=== PATIENT | male | born 1955 | race Caucasian/White ===

== ENCOUNTER 2018-03-06 15:54 | Emergency (ER) | payer OTHER ==
[~2018-03-06] VITALS: Ht 188 cm; Wt 99.8 kg
[~2018-03-06 15:54] MED LIST: ALBU90OI61 INH; Prednisone20 MG PO
[2018-03-06] MEDS ORDERED: Amoxicillin500 MG PO (16:25)
[2018-03-06] MEDS ORDERED: IBUP600 PO (16:25)
== END 2018-03-06 16:50 | disposition home or self-care (01) ==
LOC: ER 15:54
DX: K02.9 Dental caries, unspecified (principal); F17.200 Nicotine dependence, unspecified, uncomplicated
CPT/HCPCS: 99282

== ENCOUNTER 2018-04-26 21:01 | Emergency (ER) | payer OTHER ==
[~2018-04-26] VITALS: Ht 188 cm; Wt 99.8 kg
[~2018-04-26 21:01] MED LIST changes: +Amoxicillin500 MG PO; +IBUP600 PO
[2018-04-26] MEDS ORDERED: Cleocin HCl300 MG PO (23:23)
== END 2018-04-26 23:47 | disposition home or self-care (01) ==
LOC: ER 21:01
DX: K11.5 Sialolithiasis (principal); K04.7 Periapical abscess without sinus; F17.200 Nicotine dependence, unspecified, uncomplicated
CPT/HCPCS: 99282

== ENCOUNTER 2018-09-15 18:29 | Inpatient (IN) | payer OTHER ==
[~2018-09-15] VITALS: Ht 188 cm; Wt 110.0 kg
[~2018-09-15 18:29] MED LIST changes: +Cleocin HCl300 MG PO
[2018-09-15 20:20] LABS: Alanine Aminotransfer (ALT/SGP 69 U/L (12-78); Albumin, Blood 2.7 g/dL (3.4-5.0); Albumin/Globulin Ratio 0.6 (0.8-1.8); Alk Phos 283 U/L (50-136); Anion Gap 11 mmol/L (6-16); Aspartate Aminotrans (AST/SGOT 139 U/L (12-37); Bilirubin, Total 4.2 mg/dL (0.1-1.0); Blood Urea Nitrogen 34 mg/dL (8-24); Bun/Creatinine Ratio 40.9 (12.0-20.0); CO2, Blood 23 mmol/L (21-32); Calcium, Blood 8.4 mg/dL (8.5-10.1); Chloride, Blood 100 mmol/L (98-108); Creatinine, Blood 0.83 mg/dL (0.60-1.20); Globulin, Blood 4.7 g/dL (2.2-4.0); Glomerular Filtration Rate >60 (60-); Glucose, Blood 126 mg/dL (70-99); Potassium, Blood 3.9 mmol/L (3.5-5.5); Sodium, Blood 134 mmol/L (136-145); Total Protein, Blood 7.4 g/dL (6.4-8.2)
[2018-09-15 20:31] LABS: Hematocrit 48.2 % (37.0-53.0); Hemoglobin 16.8 g/dL (13.5-17.5); Mean Corpuscular HGB 31.2 pg (26.0-34.0); Mean Corpuscular HGB Conc 34.9 g/dL (31.5-36.5); Mean Corpuscular Volume 89 fL (80-100); Platelet Count 51 K/mm3 (150-400); RDW Coefficient Variation 14.4 % (11.7-14.2); RDW Standard Deviation 47.4 fL (35.1-46.3); Red Blood Cell Count 5.39 M/mm3 (4.30-5.90); White Blood Cell Count 15.91 K/mm3 (4.00-11.30)
[2018-09-15 20:58] LABS: BAND PERCENT MAN 20 % (0-8); BASOPHILS PERCENT MAN 0 % (0-2); EOSINOPHILS PERCENT MAN 0 % (0-6); LYMPHOCYTES ABSOLUTE MAN 0.63 K/mm3 (0.84-5.20); LYMPHOCYTES PERCENT MAN 4 % (21-46); MONOCYTES ABSOLUTE MAN 0.79 K/mm3 (0.16-1.47); MONOCYTES PERCENT MAN 5 % (4-13); NEUTROPHILS ABSOLUTE MAN 14.47 K/mm3 (1.96-9.15); SEG NEUTROPHILS PERCENT MAN 71 % (41-73); TOTAL CELLS COUNTED 100
[2018-09-15 21:59] LABS: Source, Urine Clean Catch
[2018-09-15 22:09] LABS: Blood, Urine 2+ (Neg); Glucose Qualitative, Urine Neg (Neg); Ketones, Urine 1+ (Neg); Leukocyte Esterase, Urine 1+ (Neg); Nitrite, Urine Neg (Neg); Protein, Urine 2+ (Neg); Specific Gravity, Urine 1.015 (1.003-1.022); Urobilinogen, Urine 4+ (Normal)
[2018-09-15 22:18] LABS: Bilirubin, Urine 2+ (Neg)
[2018-09-15 22:19] LABS: Appearance, Urine Hazy (Clear); Color, Urine Orange (P-Yellow)
[2018-09-15 22:23] LABS: Red Blood Cells, Urine 0-2 /hpf (0-2); Squamous Epithelial Cells Not Seen /hpf (Few); White Blood Cells, Urine 0-2 /hpf (0-5)
[2018-09-15 22:24] LABS: Bacteria Mod /hpf; Hyaline Casts 0-2 /lpf (0-2); Mucus Mod (0-Heavy); Spermatozoa Mod /hpf
[2018-09-16 03:04] LABS: Adenovirus Not Detected (NOT DETECT); Bordetella pertussis Not Detected (NOT DETECT); Chlamydophila pneumoniae Not Detected (NOT DETECT); Coronavirus 229E Not Detected (NOT DETECT); Coronavirus HKU1 Not Detected (NOT DETECT); Coronavirus NL63 Not Detected (NOT DETECT); Coronavirus OC43 Not Detected (NOT DETECT); Human Metapneumovirus Not Detected (NOT DETECT); Human Rhinovirus/Enterovirus Not Detected (NOT DETECT); Influenza A/2009-H1 Not Detected (NOT DETECT); Influenza A/H1 Not Detected (NOT DETECT); Influenza A/H3 Not Detected (NOT DETECT); Influenza B Not Detected (NOT DETECT); Mycoplasma pneumoniae Not Detected (NOT DETECT); Parainfluenza Virus 1 Not Detected (NOT DETECT); Parainfluenza Virus 2 Not Detected (NOT DETECT); Parainfluenza Virus 3 Not Detected (NOT DETECT); Parainfluenza Virus 4 Not Detected (NOT DETECT); Respiratory Syncytial Virus Not Detected (NOT DETECT)
[2018-09-16 03:43] LABS: U Amphetamine Screen DETECTED; U Barbituate Screen Not Detected; U Benzodiazapine Screen Not Detected; U Buprenorphine Screen Not Detected; U Cannabinoids Screen Not Detected; U Cocaine Screen Not Detected; U Methadone Screen Not Detected; U Methamphetamine Screen DETECTED; U Opiates Screen DETECTED; U Oxycodone Screen Not Detected; U Phencyclidine Screen Not Detected; U Propoxyphene Screen Not Detected
[2018-09-16 04:43] LABS: Influenza A Not Detected (NOT DETECT)
[2018-09-16 05:09] LABS: Hematocrit 43.1 % (37.0-53.0); Hemoglobin 14.9 g/dL (13.5-17.5); Mean Corpuscular HGB 31.2 pg (26.0-34.0); Mean Corpuscular HGB Conc 34.6 g/dL (31.5-36.5); Mean Corpuscular Volume 90 fL (80-100); Platelet Count 54 K/mm3 (150-400); RDW Coefficient Variation 14.5 % (11.7-14.2); RDW Standard Deviation 48.1 fL (35.1-46.3); Red Blood Cell Count 4.77 M/mm3 (4.30-5.90); White Blood Cell Count 14.31 K/mm3 (4.00-11.30)
--- NOTE | 2018-09-16 05:21 | NUR ---
SHIFT SUMMARY PT ARRIVED TO ROOM IN DISCOMFORT. PAIN MEDS WERE ORDERED. PT TX PER EMAR WITH GOOD RESULTS. PT RESP. PANEL RESULTS WERE NEGATIVE AND HE WAS REMOVED FROM ISOLATION STATUS. PT IS CURRENTLY SLEEPING AND BREATHING EASY. CALL LIGHT IN REACH.
[2018-09-16 05:22] LABS: Mean Platelet Volume 12.7 fL (9.1-12.4)
[2018-09-16 05:44] LABS: Alanine Aminotransfer (ALT/SGP 60 U/L (12-78); Albumin, Blood 2.1 g/dL (3.4-5.0); Albumin/Globulin Ratio 0.5 (0.8-1.8); Alk Phos 230 U/L (50-136); Anion Gap 8 mmol/L (6-16); Aspartate Aminotrans (AST/SGOT 115 U/L (12-37); Bilirubin, Total 3.6 mg/dL (0.1-1.0); Blood Urea Nitrogen 33 mg/dL (8-24); Bun/Creatinine Ratio 45.7 (12.0-20.0); CO2, Blood 25 mmol/L (21-32); Calcium, Blood 7.5 mg/dL (8.5-10.1); Chloride, Blood 103 mmol/L (98-108); Creatinine, Blood 0.72 mg/dL (0.60-1.20); Globulin, Blood 4.2 g/dL (2.2-4.0); Glomerular Filtration Rate >60 (60-); Glucose, Blood 178 mg/dL (70-99); Potassium, Blood 4.1 mmol/L (3.5-5.5); Sodium, Blood 136 mmol/L (136-145); Total Protein, Blood 6.3 g/dL (6.4-8.2)
--- NOTE | 2018-09-16 18:33 | NUR ---
SHIFT SUMMARY BARRY WAS PAINFUL THIS SHIFT, RECEIVED IV FENTANYL, WHICH HELPED. PAIN IS MOSTLY IN R HEEL (FROM BRIAR PATCH INCIDENT TWO WEEKS AGO) AND BACK AND R SHOULDER. MRI DONE, US LIVER, CXR, SHOULDER XR. POSITIVE BLOOD CULTURE RESULTS (CALLED AND INFORMED DR WETZEL). TELE DC'D. BEDBOUND, ABLE TO MOVE SLIGHTLY IN BED, BUT ALL MOVEMENT VERY PAINFUL TO HIM. USED URINAL IN BED. TOOK MED PRESCRIBED. WCTM
[2018-09-17 05:28] LABS: Hematocrit 44.1 % (37.0-53.0); Hemoglobin 15.3 g/dL (13.5-17.5); Mean Corpuscular HGB 31.4 pg (26.0-34.0); Mean Corpuscular HGB Conc 34.7 g/dL (31.5-36.5); Mean Corpuscular Volume 91 fL (80-100); Mean Platelet Volume 12.3 fL (9.1-12.4); Platelet Count 82 K/mm3 (150-400); RDW Coefficient Variation 14.7 % (11.7-14.2); RDW Standard Deviation 48.8 fL (35.1-46.3); Red Blood Cell Count 4.87 M/mm3 (4.30-5.90); White Blood Cell Count 14.59 K/mm3 (4.00-11.30)
[2018-09-17 05:55] LABS: Alanine Aminotransfer (ALT/SGP 59 U/L (12-78); Albumin, Blood 2.1 g/dL (3.4-5.0); Albumin/Globulin Ratio 0.5 (0.8-1.8); Alk Phos 232 U/L (50-136); Anion Gap 9 mmol/L (6-16); Aspartate Aminotrans (AST/SGOT 117 U/L (12-37); Bilirubin, Total 3.3 mg/dL (0.1-1.0); Blood Urea Nitrogen 33 mg/dL (8-24); Bun/Creatinine Ratio 39.7 (12.0-20.0); CO2, Blood 23 mmol/L (21-32); Calcium, Blood 7.6 mg/dL (8.5-10.1); Chloride, Blood 102 mmol/L (98-108); Creatinine, Blood 0.83 mg/dL (0.60-1.20); Globulin, Blood 4.6 g/dL (2.2-4.0); Glomerular Filtration Rate >60 (60-); Glucose, Blood 109 mg/dL (70-99); Potassium, Blood 4.1 mmol/L (3.5-5.5); Sodium, Blood 134 mmol/L (136-145); Total Protein, Blood 6.7 g/dL (6.4-8.2)
[2018-09-17 06:05] LABS: BAND PERCENT MAN 14 % (0-8); BASOPHILS PERCENT MAN 0 % (0-2); EOSINOPHILS PERCENT MAN 0 % (0-6); LYMPHOCYTES ABSOLUTE MAN 0.72 K/mm3 (0.84-5.20); LYMPHOCYTES PERCENT MAN 5 % (21-46); MONOCYTES ABSOLUTE MAN 2.33 K/mm3 (0.16-1.47); MONOCYTES PERCENT MAN 16 % (4-13); NEUTROPHILS ABSOLUTE MAN 11.52 K/mm3 (1.96-9.15); SEG NEUTROPHILS PERCENT MAN 65 % (41-73); TOTAL CELLS COUNTED 100
--- NOTE | 2018-09-17 06:42 | NUR ---
SHIFT SUMMARY PT SLEPT SOUNDLY T/O NIGHT. AOX4. VSS. PT REPORTS 7/10 LOWER BACK/L. SIDE PAIN, MEDICATED 2X W/10MG OXYCODONE PER ORDERS. PT REPORTED MILD NAUSEA THIS AM & WAS MEDICATED 1X W/ZOFRAN PER ORDERS. PT REPORTED SOB W/EXERTION/MOVEMENT IN BED EARLIER IN SHIFT, SPO2 @90-93% ON RA, DENIES SOB THIS AM. PT VERY DIAPHORETIC T/O NIGHT W/MILD FEVER RANGING 99.6-100.8 NOTIFIED HOSPITALIST KAILA, NO NEW ORDERS @THIS TIME. PLACED ICE PACK ON BACK OF NECK & PT REPORTS IT IS HELPING, PT NOT DIAPHORETIC THIS AM. PER DAY SHIFT RN PT REPORTED DRINKING 3-4 ALCOHOLIC BEVERAGES A DAY, NOTIFIED CHARGE NURSE & STARTED ASSESSING CIWA PER PROTOCAL. CIWA SCORE HAS BEEN 8 T/O NIGHT, MEDICATED 1X W/ATIVAN PER ORDERS. CALL LIGHT IS IN REACH & BED IS IN LOWEST POSITION.
--- NOTE | 2018-09-17 17:00 | NUR ---
HE HAS SLEPT THROUGHOUT THE DAY. HE DRINKS WELL BUT HAS EATEN LITTLE. OXYCODONE 10 MG GIVEN X1. DENIES NAUSEA, SOB OR DIZZINESS. HE HAS A LOT OF PAIN IN HIS R SHOULDER AND IN HIS BACK. HE IS STIFF AND DOES NOT MOVE HIMSELF. LARGE U.O. SOME MEASURED, SOME INCONTINENT. HE REFUSED HIS ABD MRI EVEN AFTER DISCUSSIONS WITH ME AND THEN THE DOCTOR. HE SAYS HE'LL LET US KNOW IF HE CHANGES HIS MIND. CIWA 7. LOW GRADE FEVER TODAY WITH SOME DIAPHORESIS. HEEL PROTECTORS AND SCD'S INITIATED TODAY. HE HAS SOME WHOLE BODY EDEMA. VANCO CONTINUES. ZOSYN STARTED. WILL CONTINUE TO ENCOURAGE POSITION CHANGES TO AVOID SKIN BREAKDOWN. HE WILL NOT MOVE ON HIS OWN.
--- NOTE | 2018-09-17 23:04 | NUR ---
2204 PT LYING IN BED, REPORT SOB THAT INCREASES WITH EXERTION. PT IS ON RA AT 88%, WILL ADD O2. REPORTS BACK PAIN, GAVE ROXICODONE AND FLEXERIL, WILL EVAL FOR EFFECT. NO OTHER APPARENT SIGNS OF DISTRESS. CALL LIGHT IS IN REACH.
--- NOTE | 2018-09-18 01:03 | NUR ---
PT LYING IN BED, EYES CLOSED, APPEARS TO BE RESTING. BREATHING IS EVEN, UNLABORED. NO APPARENT SIGNS OF DISTRESS. CALL LIGHT IS IN REACH. PLACED 1L O2 NC ON PATIENT, WILL EVAL FOR EFFECT.
--- NOTE | 2018-09-18 02:04 | NUR ---
PT'S O2 IS NOW 96% ON 1L NC O2. PT LYING IN BED, EYES CLOSED, APPEARS TO BE RESTING. BREATHING IS EVEN, UNLABORED. NO APPARENT SIGNS OF DISTRESS. CALLL LIGHT IS IN REACH.
--- NOTE | 2018-09-18 02:54 | NUR ---
PT IS AAO X 4 BUT DROWSY. ON 1L O2NC. SCD'S. PT REPORTS BACK PAIN, GOT ROXICODONE AND FLEXERIL AT HS. ABD IS DISTENDED AND SLIGHTLY FIRM. CIWA 0-2. LAST BM 09/15, GAVE PT DOCUSATE. PT REPORST A LITTLE SOB THAT INCREASES WITH EXERTION, O2 SAT IS 96%.
--- NOTE | 2018-09-18 05:14 | NUR ---
0400 PT LYING IN BED, EYES CLOSED, WAKES EASILY TO VERBAL STIMULI. NO APPARENT SIGNS OF DISTRESS. CALL LIGHT IS IN REACH.
--- NOTE | 2018-09-18 05:15 | NUR ---
PT LYING IN BED, EYES CLOSED, APPEARS TO BE RESTING. BREATHING IS EVEN, UNLABORED. NO APPARENT SIGNS OF DISTRESS. CALL LIGHT IS IN REACH. NO OTHER CHANGES THIS SHIFT.
[2018-09-18 11:24] LABS: Vancomycin, Trough 10.2 ug/mL (5.0-10.0)
--- NOTE | 2018-09-18 11:33 | NUR ---
HE HAS BEEN MORE ALERT TODAY. LOW GRADE FEVER RESOLVED AFTER BREAKFAST. HE HAS BEEN DIAPHORETIC. O2 2L. MOVES HIS ARMS AND HEAD BUT NOT HIS BODY AND LEGS. TURNED BY US THIS AM. HE FED HIMSELF BETTER THIS MORNING. HE HAS POOR ROM IN HIS R ARM D/T PAIN.
--- NOTE | 2018-09-18 17:12 | NUR ---
SHIFT SUMMARY 2 ANTIBIOTICS DC'D TODAY AND MEFOXIN STARTED. HE HAS BEEN WARM AND CLAMMY MOST OF THE DAY. CIWA SCORES 5 AND LATER, 2. PAIN MEDICINES AND BOWEL CARE GIVEN THIS AFTERNOON. BEDBATH DONE. HE HAS BEEN TURNED. HE IS PAINFUL WITH ANY MOVEMENT. NOW HE HAS SHARP PAIN IN HIS RIGHT RIBS IN ADDITION TO HIS BACK AND HIS RIGHT SHOULDER. HE ALSO RECEIVED A NEB TX THIS AFTERNOON FOR WHEEZES AND SOB. HE SATS 91% ON 2L. RIGHT NOW HE HAS A FEVER OF 101 AND SAT 92%. PULSE AND BP STABLE. WILL CALL MD ABOUT THE FEVER. NO MED ORDERED FOR IT. ABD IS DISTENDED. HE CONTINUES TO REFUSE THE MRI OF HIS ABD. MOR AWAKE THAN YESTERDAY AND ABLE TO FEED HIMSELF. HE ATE 60% AND 40% AT MEALS SO FAR TODAY.
--- NOTE | 2018-09-18 18:34 | NUR ---
TYLENOL WAS GIVEN FOR FEVER. ZOSYN HAS BEEN RESUMED. SPOKE WITH AN INFECTIOUS DISEASE DOCTOR [facility].
--- NOTE | 2018-09-18 20:09 | NUR ---
PT WAS VERY DIAPHORETIC UPON ASSESSMENT BUT LIKELY BROKE FEVER WHICH HAS NOW RESOLVED, T=98.5 AT THIS TIME. GOWN AND LINEN CHANGED D/T BECOMING SATURATED. HE ATTEMPTED TO GET OOB BY SELF AND WAS FOUND SITTING AT EOB AT SHIFT CHANGE. DAY RN STATED THIS WAS THE MOST MOBILITY HE'D HAD SINCE ADMISSION. HE WAS INSTRUCTED ON FALL PRECAUTIONS D/T WEAKNESS AND WAS ASSISTED BACK TO BED. PLAN TO HAVE PT EVALUATE FOR RECOMMENDATIONS. HE BECOMES SOB W/EXERTION BUT RECOVERS AT REST. PT ON 2L NC W/SPO2 92%. WILL MONITOR CLOSELY FOR CHANGES. PT DENIED NEEDS AT THAT TIME.
--- NOTE | 2018-09-19 05:55 | NUR ---
SUMMARY: A/OX3 AND SPECIFIES NEEDS. STRENGTH IMPROVING BECAUSE PT WAS ABLE TO GET HIMSELF TO EOB INDEPENDENTLY AT START OF SHIFT. HE WAS ASSISTED BACK TO BED UNTIL PT EVALUATION TO DETERMINE SAFE T/F AND MOBILITY. PT DENIED NEEDS AT THAT TIME. HE REQ'S ASSISTANCE W/URINAL AND CALLS APPROPRIATELY. PT ASSISTED W/REPOSITIONING D/T EXTENSIVE SPINAL ISSUES WHICH LIMIT ROM. PT MEDICATED W/ FENTANYL PRN FOR BACK PAIN. NS INFUSES TKVO. ABDO FIRM/DISTENDED W/POSSIBLE LIVER MASS BUT PT REFUSING MRI. HE REMAINS ON 2L O2 W/WHEEZES AND OCCASIONAL FINE CRACKLES HEARD. CIWAS STABLE AT 2. PT WAS FEBRILE DURING DAY SHIFT AND RECIEVED TYLENOL FOR GOOD EFFECT. HE'S CONT'D DIAPHORETIC AT TIMES BUT HAS REMAINED AFEBRILE. NO ACUTE CHANGES, VSS/AFEBRILE. WILL MONITOR AND REPORT TO DAY RN.
--- NOTE | 2018-09-19 10:26 | NUR ---
Echocardiogram completed.
[2018-09-19 13:02] LABS: BASOPHILS ABSOLUTE AUTO 0.04 K/mm3 (0.00-0.23); BASOPHILS PERCENT AUTO 0 % (0-2); EOSINOPHILS ABSOLUTE AUTO 0.03 K/mm3 (0.00-0.68); EOSINOPHILS PERCENT AUTO 0 % (0-6); Hematocrit 42.4 % (37.0-53.0); Hemoglobin 14.2 g/dL (13.5-17.5); IMMATURE GRAN ABSOLUTE AUTO 0.42 K/mm3 (0.00-0.10); IMMATURE GRAN PERCENT AUTO 3 % (0-1); LYMPHOCYTES PERCENT AUTO 5 % (21-46); MONOCYTES ABSOLUTE AUTO 0.94 K/mm3 (0.16-1.47); MONOCYTES PERCENT AUTO 6 % (4-13); Mean Corpuscular HGB 30.8 pg (26.0-34.0); Mean Corpuscular HGB Conc 33.5 g/dL (31.5-36.5); Mean Corpuscular Volume 92 fL (80-100); Mean Platelet Volume 10.6 fL (9.1-12.4); NEUTROPHILS ABSOLUTE AUTO 12.52 K/mm3 (1.96-9.15); NEUTROPHILS PERCENT AUTO 85 % (41-73); Platelet Count 140 K/mm3 (150-400); RDW Coefficient Variation 15.1 % (11.7-14.2); RDW Standard Deviation 50.4 fL (35.1-46.3); Red Blood Cell Count 4.61 M/mm3 (4.30-5.90); White Blood Cell Count 14.65 K/mm3 (4.00-11.30)
[2018-09-19 13:18] LABS: Creatinine, Blood 0.64 mg/dL (0.60-1.20)
[2018-09-19 13:23] LABS: Alanine Aminotransfer (ALT/SGP 58 U/L (12-78); Albumin, Blood 1.6 g/dL (3.4-5.0); Albumin/Globulin Ratio 0.3 (0.8-1.8); Alk Phos 267 U/L (50-136); Anion Gap 8 mmol/L (6-16); Aspartate Aminotrans (AST/SGOT 113 U/L (12-37); Bilirubin, Total 6.7 mg/dL (0.1-1.0); Blood Urea Nitrogen 20 mg/dL (8-24); Bun/Creatinine Ratio 32.5 (12.0-20.0); CO2, Blood 24 mmol/L (21-32); CPK Creatine Kinase 108 U/L (39-308); Calcium, Blood 7.4 mg/dL (8.5-10.1); Chloride, Blood 97 mmol/L (98-108); Creatinine, Blood 0.62 mg/dL (0.60-1.20); Globulin, Blood 5.1 g/dL (2.2-4.0); Glomerular Filtration Rate >60 (60-); Glucose, Blood 188 mg/dL (70-99); Sodium, Blood 129 mmol/L (136-145); Total Protein, Blood 6.7 g/dL (6.4-8.2)
--- NOTE | 2018-09-19 18:20 | NUR ---
SHIFT SUMMARY PT A&O TO SELF AND PLACE. ANXIOUS AT TIME, BUT COOPERATIVE WITH CARE. PT RESTING IN BED DURING SHIFT. PT ASSIST WITH REPORITIONING. PT SOB WITH EXERTION AND AT TIMES AT REST, BREATHING TREATMENTS x2 DURING SHIFT, LS EXP WHE T/O, >90% ON 2L O2 VIA NC. PT REPORTS PAIN "ALL OVER" BUT PRIMARILY IN LOWER BACK AND RIGHT SHOULDER/ARM, MEDICATED x2 WITH OXYCODONE WITH POSITIVE RESULTS. PT DENIES N/V DURING SHIFT. PT RECEIVING IV ANTIBIOTICS. VSS. NO OTHER ACUTE CHANGES NOTED DURING SHIFT. WILL CONTINUE TO MONITOR UNTIL REPORT GIVEN TO ONCOMING RN.
[2018-09-20 05:55] LABS: Anion Gap 6 mmol/L (6-16); Blood Urea Nitrogen 19 mg/dL (8-24); Bun/Creatinine Ratio 31.2 (12.0-20.0); CO2, Blood 26 mmol/L (21-32); Calcium, Blood 7.5 mg/dL (8.5-10.1); Chloride, Blood 99 mmol/L (98-108); Creatinine, Blood 0.61 mg/dL (0.60-1.20); Glomerular Filtration Rate >60 (60-); Glucose, Blood 104 mg/dL (70-99); Potassium, Blood 4.5 mmol/L (3.5-5.5); Sodium, Blood 131 mmol/L (136-145)
--- NOTE | 2018-09-20 06:02 | NUR ---
SUMMARY: A/O BUT CONFUSED TO TIME/DATE. HE CONT'S TO BE DIAPHORETIC W/LINEN AND GOWN CHANGES PRN. PT USES URINAL INDEPENDENTLY IN BED AND ATTENDS CHANGED PRN FOR DRIBBLE. HE CALLS APPROPRIATELY AT TIMES BUT MARIPOSA BRITTON ATTENDED TO BECAUSE HE OFTEN BECOMES SLUMPED DOWN IN BED AND DOESN'T CALL FOR ASSIST. REPOSITIONING PROVIDED OFTEN. PT MEDICATED W/FENTANYL 50 MCG IV X1 AND ROXICODONE 2 TABS X1 FOR TOLERABLE CONTROL OF CHRONIC BACK PAIN AND ACUTE RIB PAIN. SOB BOTH AT REST AND W/EXERTION PERSIST AND IS OCCASIONALLY ANXIETY INDUCED. EXP WHEEZES HEARD AND RT PROVIDED BX TX'S PER EMAR. HE REMAINS ON 2L O2 VIA NC SPO2>90'S. 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 CIWAS VARIABLE BTWN 6-7 D/T TREMOR, ANXIETY AND SWEATS SO ATIVAN 1MG IV WAS GIVEN FOR CALMING EFFECT. PT WAS ABLE TO SLEEP SOME WHICH HE WAS HAVING DIFFICULTY DOING PRIOR. ABDO CONT'S FIRM/DISTENDED W/POSS LIVER MASS, HE'S DENIED N/V. NO ACUTE CHANGES, VSS/AFEBRILE. WILL REPORT TO DAY RN.
--- NOTE | 2018-09-20 09:39 | NUR ---
PT C/O RIGHT SIDED "SHARP" NON REPRODUCIBLE CONSTANT CHESTPAIN; SKIN MOIST; DENIES INCREASED SOB OR NAUSEA; JUST COMPLETED OT EVALUATION WHEN PAIN BEGAN. REPORTED TO DR. DOAN; EKG ORDERED. [facility] NOTIFIED VIA [employer].
--- NOTE | 2018-09-20 18:16 | NUR ---
SHIFT SUMMARY OX3; CLAMMY SKIN THROUGHOUT SHIFT; EKG PERFORMED TODAY FOR RIGHT SIDED CP NOW RESOLVED; ABLE TO SIT ON EDGE OF BED - WEAKNESS NOTED. CHRONIC RIGHT SHOULDER AND LOWER BACK PAIN. LS WITH AUDIBLE WHEEZING AT TIMES; SIWA >6; 2L PER NC. BEDREST. DISTENDED ABDOMEN R/T LIVER DISEASE. HX OF METH, ETOH. COOPERATIVE WITH CARE.
--- NOTE | 2018-09-21 04:04 | NUR ---
SHIFT SUMMARY: PT RESTED WELL. CONTINUES TO BE ON 3L VIA NC AND SOB. MEDICATED X 2 FOR RIB AND LOWER BACK PAIN. EPIRATORY WHEEZES T/O. ABDOMEN CONTINUES TO BE DISTENDED AND FIRM. NO ACUTE CHANGES. PT HAS BEEN COOPERATIVE WITH CARE. WILL CONTINUE TO MONITOR AND PROVIDE CARE UNTIL SHIFT REPORT.
[2018-09-21 05:08] LABS: BASOPHILS ABSOLUTE AUTO 0.07 K/mm3 (0.00-0.23); BASOPHILS PERCENT AUTO 0 % (0-2); EOSINOPHILS ABSOLUTE AUTO 0.09 K/mm3 (0.00-0.68); EOSINOPHILS PERCENT AUTO 1 % (0-6); Hematocrit 38.8 % (37.0-53.0); IMMATURE GRAN ABSOLUTE AUTO 0.51 K/mm3 (0.00-0.10); IMMATURE GRAN PERCENT AUTO 3 % (0-1); LYMPHOCYTES ABSOLUTE AUTO 0.81 K/mm3 (0.84-5.20); LYMPHOCYTES PERCENT AUTO 5 % (21-46); MONOCYTES ABSOLUTE AUTO 1.17 K/mm3 (0.16-1.47); MONOCYTES PERCENT AUTO 7 % (4-13); Mean Corpuscular HGB 31.2 pg (26.0-34.0); Mean Corpuscular HGB Conc 33.5 g/dL (31.5-36.5); Mean Corpuscular Volume 93 fL (80-100); Mean Platelet Volume 9.8 fL (9.1-12.4); NEUTROPHILS ABSOLUTE AUTO 13.42 K/mm3 (1.96-9.15); NEUTROPHILS PERCENT AUTO 84 % (41-73); Platelet Count 182 K/mm3 (150-400); RDW Coefficient Variation 15.2 % (11.7-14.2); RDW Standard Deviation 50.7 fL (35.1-46.3); Red Blood Cell Count 4.17 M/mm3 (4.30-5.90); White Blood Cell Count 16.07 K/mm3 (4.00-11.30)
--- NOTE | 2018-09-21 15:00 | NUR ---
SPOKE WITH DR. DOAN IN REGARDS TO DR. SEBASTIAN'S REQUEST THAT ONLY ATTENDING PHYSICIANS CAN PLACE NEW ID CONSULTS AND WILL HAVE TO SPEAK DIRECTLY TO DR. SEBASTIAN ON PER HIS VOICEMAIL RECORDING.
--- NOTE | 2018-09-21 17:05 | NUR ---
SHIFT SUMMARY UP IN CHAIR FOR SEVERAL HOURS TODAY; SBAX1; APPEARS LESS WEAK THAN YESTERDAY; CONVERSATIONAL AND JOKING WITH STAFF; EXP WHEEZES NOTED. EATING AND DRINKING WELL. VOIDING DARK FRANKY URINE PER URINAL. MEDICATED FOR CHRONIC LOWER BACK AND RIGHT SHOULDER PAIN PER MD ORDER. PT STATED RELIEF.
--- NOTE | 2018-09-22 04:47 | NUR ---
Rn summary: Patient is alert and oriented. Pt has been pleasant and cooperative. Pt states he has not had a BM for several days. Pt given a suppository. He had a large firm stool. Pt requested a fleets states he feels like he still needs to go. Pt given a fleets had another med stool. Pt is able to transfer with minimal assist to [facility]. Pt is sweaty. He scores a 6 on the CIWA scale mostly due to his diaphoresis. Pt denies pain. He has actually rested well this shift. Pt has trouble keeping his O2 in his nose, takes it off when he sleeps. Pt was found to have O2 sats at 87% on room air, 90% on 3 liters. Breath sounds with Expiratory wheezes throughout, fine crackles L base. Pt medicted for pain x1 with good relief. Pt using urinal, urine is dk manuel in color. Continue to monitor closely, bed alarm on for safety.
--- NOTE | 2018-09-22 09:29 | NUR ---
AM ASSESSMENT PT IS A/O X3. STATE CONTINUING SOB @ REST. LUNGS COARSE W EXP WHEEZE, RT IN TO PROVIDE NEB. O2 @ 3L 97%. ABD IS ROUND/DISTENDED/FIRM. DR DOAN IN TO ASSESS, ORDER ABD US TO DETERMINE IF ASCITES. STATE HE WILL CALL DR SEBASTIAN FOR ID CONSULT. CIWA 3 THIS AM D/T MILD ANXIETY & DIAPHOESIS. BLE EDEMA NOTED. PT IS PLEASANT/COOPERATIVE. SITTING UP IN BED FOR BF.
--- NOTE | 2018-09-22 14:31 | NUR ---
RECEIVED REPORT FROM LISSY ARMIJO
--- NOTE | 2018-09-22 16:15 | NUR ---
TRANSPORTED TO CT VIA W/C AND IN NO ACUTE DISTRESS.
--- NOTE | 2018-09-22 18:49 | NUR ---
SHIFT SUMMARY OX3; STANDBY ASSIST X1-2. CHRONIC LOWER BACK AND RIGHT ARM PAIN; HOMELESS. ULTRASOUND AND CT COMPLETED THIS SHIFT. DR. SEBASTIAN TALKED WITH PT THIS P.M.
[2018-09-23 02:12] LABS: HBSAG SCREEN Negative (Negative); HEP A AB, IGM Negative (Negative); HEP B CORE AB, IGM Negative (Negative); HEP C VIRUS AB >11.0 (0.0-0.9)
[2018-09-23 04:48] LABS: BASOPHILS ABSOLUTE AUTO 0.06 K/mm3 (0.00-0.23); BASOPHILS PERCENT AUTO 1 % (0-2); EOSINOPHILS PERCENT AUTO 1 % (0-6); Hematocrit 38.4 % (37.0-53.0); Hemoglobin 12.7 g/dL (13.5-17.5); IMMATURE GRAN ABSOLUTE AUTO 0.46 K/mm3 (0.00-0.10); IMMATURE GRAN PERCENT AUTO 4 % (0-1); LYMPHOCYTES ABSOLUTE AUTO 0.99 K/mm3 (0.84-5.20); LYMPHOCYTES PERCENT AUTO 9 % (21-46); MONOCYTES ABSOLUTE AUTO 1.16 K/mm3 (0.16-1.47); MONOCYTES PERCENT AUTO 10 % (4-13); Mean Corpuscular HGB Conc 33.1 g/dL (31.5-36.5); Mean Corpuscular Volume 94 fL (80-100); Mean Platelet Volume 9.3 fL (9.1-12.4); NEUTROPHILS ABSOLUTE AUTO 8.49 K/mm3 (1.96-9.15); NEUTROPHILS PERCENT AUTO 75 % (41-73); Platelet Count 270 K/mm3 (150-400); RDW Coefficient Variation 15.9 % (11.7-14.2); RDW Standard Deviation 52.2 fL (35.1-46.3); White Blood Cell Count 11.26 K/mm3 (4.00-11.30)
[2018-09-23 05:34] LABS: Anion Gap 4 mmol/L (6-16); Blood Urea Nitrogen 15 mg/dL (8-24); Bun/Creatinine Ratio 24.6 (12.0-20.0); CO2, Blood 32 mmol/L (21-32); Calcium, Blood 7.4 mg/dL (8.5-10.1); Chloride, Blood 96 mmol/L (98-108); Creatinine, Blood 0.61 mg/dL (0.60-1.20); Glomerular Filtration Rate >60 (60-); Glucose, Blood 104 mg/dL (70-99); Sodium, Blood 132 mmol/L (136-145)
--- NOTE | 2018-09-23 06:51 | NUR ---
Rn summary: Pt is alert and knows his birthday the month and where he is but he is nonsensicle and just says off the wall things. Pt has been better at keeping his O2 on at 3 liters. Pt gets very diaphoretic and agitated. He says yes it could be due to his drug use. Pt given oxy 10mg and a small fan to help with feeling "hot". Pt did rest well after med given and has had no further restlessness. He has rested well since 0130. Pt has tight fine exp wheezes scattered through right lung. Abdomen is distended and firm. Bowel tones hypoactive. MOM and colace given with no results. ( CT states he has a lot of stool in bowel). Pt continues with sl jaundiced skin tone and brownish legs. Pt urine remains dk manuel in color. Using the urinal at bedside. Call light in reach and pt uses appropriately. Bed alarm for safety.
--- NOTE | 2018-09-23 13:10 | NUR ---
IS HERE TO CONSULT WITH HIM.
[2018-09-23 16:08] LABS: FINAL INTERPRETATION Negative (.); HIV 1 AB Negative (Negative); HIV 2 AB Negative (Negative)
--- NOTE | 2018-09-23 19:22 | NUR ---
SHIFT SUMMARY NO HIGH FEVER TODAY. NO DIAPHORESIS. MORE ALERT THAN 5 DAYS AGO. TOOK OXYCODONE X1 TODAY FOR LOW BACK PAIN. CONSULTED WITH HIM TODAY. SPOKE WITH TODAY. POSSIBLE CHAPARRITA ON WEDNESDAY. LABS OK.O2 3L. NO C/O SOB. ABD REMAINS DISTENDED. HE HAD AN X-LG BM TODAY.
--- NOTE | 2018-09-24 04:49 | NUR ---
SHIFT SUMMARY A/O, ABLE TO MAKE NEEDS KNOWN. COOPERATIVE WITH CARE. ANSWERS QUESTIONS APPROPRIATELY. NOTED NON-SENSICAL LANGUAGE AT TIMES. C/O PAIN/DISCOMFORT; STATES BECOMES PAINFUL AT NIGHT AND HAS PAINS IN BLE. MEDICATED PER EMAR. APPEARED TO REST MOST OF SHIFT. VSS/AFEBRILE. NO ACUTE CHANGES NOTED OVERNIGHT. BED IN LOWEST POSITION. CALL LIGHT AND BELONGINGS WITHIN REACH. WCTM. REPORT TO ONCOMING RN.
--- NOTE | 2018-09-25 04:21 | NUR ---
SHIFT SUMMARY REMAINS A/O. COOPERATIVE WITH CARE. NO ACUTE CHANGES NOTED OVERNIGHT. ANSWERS QUESTIONS APPROPRIATELY. C/O PAIN/DISCOMFORT TO LOW BACK; MEDICATED PER EMAR. APPEARED TO REST MOST OF SHIFT. IV ABX ADMINISTERED WITHOUT COMPLICATION. SCD'S IN PLACE. BED IN LOWEST POSITION. ALARM ON. CALL LIGHT AND BELONGINGS WITHIN REACH. WCTM. REPORT TO ONCOMING RN.
--- NOTE | 2018-09-25 16:57 | NUR ---
SHIFT SUMMARY. A&OX4, 1 ASSIST TO BATHROOM FOR BMS, USES URINAL IN BED. PT SLEPT MOST OF THE DAY. REPORTED CHRONIC BACK PAIN THIS AM, MANAGED WELL WITH PRN OXYCODONE. NO N/V, SOB. CONTINUES WITH 2L O2 NC, LUNGS WITH EXPIRATORY WHEEZES THROUGHOUT. ABD MODERATELY DISTENDED, FIRM, NONTENDER, PT STATES NOT NORMAL FOR HIM. PT REPORTS XL BM YESTERDAY. NO NEW CHANGES OR CONCERNS.
--- NOTE | 2018-09-26 05:20 | NUR ---
SHIFT SUMMARY A/O, ABLE TO MAKE NEEDS KNOWN. COOPERATIVE WITH CARE. C/O PAIN TO LOWER BACK AND BLE; MEDICATED PER EMAR. VSS/AFEBRILE. UP WITH 1 ASSIST AND FWW TO BATHROOM; STEADY GAIT. NO ACUTE CHANGES NOTED OVERNIGHT. REMAINS ON 3L VIA [facility] [employer]. BED IN LOWEST POSITION. ALARM ON. CALL LIGHT AND BELONINGS WITHIN REACH. REPORT TO ONCOMING RN.
--- NOTE | 2018-09-26 15:45 | NUR ---
summary PT IS A/O X4, PLEASANT AFFECT, 1 ASSIST W FWW TO BR/CHAIR, HOWEVER WEAK/FATIGUED. STATE LOW BACK PAIN, PRN OXYCODONE 10 MG FOR RELIEF TODAY. HE PARTICIPATE WITH PT/OT, AMBULATE IN ROOM HOWEVER DECLINES TO STAY UP IN CHAIR D/T BACK PAIN. HE GETS SOMEWHAT SOB W EXERTION HOWEVER THIS AFTERNOON HE TOOK O2 OFF, BIOX 97%, ON RA @ THIS TIME. ABD CONTINUES FIRM/DISTENDED. HX CIRRHOSIS, US NEGATIVE FOR ASCITES. DX PSOAS ABCESS, IV ANTIBX CONTINUE, NO FEVER TODAY, VSS.
--- NOTE | 2018-09-27 04:42 | NUR ---
SHIFT SUMMARY PT ADMITTED FOR FEVER. FULL CODE. REGULAR DIET. XR CT MR INJASPIR-MAJOR JOINT, PSOAS ABSCESS, RIGHT, CT GUIDED ASPIRATION OF PSOAS MAJOR ABCESS-CX WITH GRAM STAIN. 20 G IV TO R FA. 1 PERSON ASSIST WITH FWW FOR AMBULATION. TITRATED OFF O2 YESTERDAY, SATS GREATER THEN 90% ON RA. THE PT PRESENTED TO THE ED WITH C/O BODY ACHES, LOW BACK PAIN, AND LEFT LEG PAIN. THE PT ALSO REPORTED R SHOULDER AND ARM PAIN OF UNKNOWN CAUSE. ABD US SHOWED LIKELY CIRRHOSIS, PT REPORTS ALCOHOL HISTORY. THE PT IS NOTED TO BE SEPTIC, LIKELY SECONDARY TO PNEUMONIA/BACTEREMIA OR SECONDARY TO IV DRUG ABUSE. MRI SHOWED SIGNIFICANT DEGENERATIVE DISC DISEASE. 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 INFECTIOUS DISEASE RECOMMENDED CHAPARRITA BUT CARDIOLOGY WANTED TO HOLD OFF UNTIL THE ABCESS IS DRAINED. UPON SURGICAL CONSULT IT IS NOTED THAT THE ABCESS CANOT BE DRAINED. THE PT IS PLEASENT, COOPERATIVE, ALERT, ORIENTED, AND 1 PERSON ASSIST WITH FWW WITH TRANSFER. THE PT LAYED IN BED, WOKE EASILY FOR CARE AND WAS PROVIDED MULTIPLE SNACKS THIS SHIFT. THE PT HAS APPEARED TO SLEEP COMFORTABLY MOST OF THE NIGHT WITH NO APPARENT SIGNS OF ACUTE DISTRESS. ABLE TO MAKE NEEDS KNOWN AND CALL LIGHT IN REACH.
[2018-09-27 04:50] LABS: International Normalized Ratio 1.61; Prothrombin Time Results 16.1 Sec (9.7-11.5)
--- NOTE | 2018-09-27 09:52 | NUR ---
PATIENT WAS OFFERED A SHOWER MULTIPLE TIMES THIS MORNINF AND PATIENT DECLINED STATING HE IS OK FOR TODAY.
--- NOTE | 2018-09-27 13:44 | NUR ---
Pt gave verbal consent for me to treat him on 09-28-2018
--- NOTE | 2018-09-27 16:20 | NUR ---
SUMMARY PT IS A/O X4, AMBULATES 1 ASSIST WITH FWW HOWEVER WEAKLY & WITH BACK PAIN. STATE FEELS BEST WHEN LYING DOWN WITH HOB APPROX 30 DEGREES. STATE CONTINUING ABDOMINAL DISTENTION, STATES MAKES BREATHING DIFFICULT HOWEVER NOT CAUSING HIM PAIN. DR WETZEL ORDERED PSOAS ABCESS US GUIDED ASPIRATION TODAY, THEY WERE ABLE TO OBTAIN SAMPLE HOWEVER UNABLE TO DRAIN. DR JIN SURGERY THAT PT NEEDS UNAVAILABLE @ [facility], WILL ATTEMPT TO TRANSFER PT TO [facility]. CLINICAL LABORATORY MANAGER AWARE. AWAITING CALL BACK FROM [facility] @ THIS TIME. PT INFORMED & AWARE OF POSSIBLE TRANSFER. VSS.
--- NOTE | 2018-09-27 22:45 | NUR ---
TRANSFER CALLED REPORT TO JANESSA KHAN AT 2140 AT [facility]. TRANSPORT ARRIVED AND REPORT GIVEN. PT DISCHARGED FOR TRANSFER AT 2240. PT VERBALIZED UNDERSTANDING OF TRANSFER AND REASON FOR TRANSFER. PT WAS IN GOOD SPIRITS AT TRANSFER AND APPEARED STABLE. NO APPARENT SIGNS OF ACUTE DISTRESS.
== END 2018-09-27 22:43 | disposition short-term general hospital (02) | DRG 871 ==
LOC: ER 18:29 → MEDS 09-16 00:23 → ENPENDDIS 09-27 17:37 → MEDS 09-27 22:43
PROVIDERS: Emergency Medicine; Hospitalist; Internal Medicine; Pharmacist; Physician Assistant; ADMIT Internal Medicine
DX: A41.4 Sepsis due to anaerobes (principal); J18.9 Pneumonia, unspecified organism; K68.12 Psoas muscle abscess; I82.619 Acute embolism and thrombosis of superficial veins of unspecified upper extremity; F17.210 Nicotine dependence, cigarettes, uncomplicated; A41.9 Sepsis, unspecified organism; E86.0 Dehydration; K70.30 Alcoholic cirrhosis of liver without ascites; F19.10 Other psychoactive substance abuse, uncomplicated; I71.2 Thoracic aortic aneurysm, without rupture; I35.1 Nonrheumatic aortic (valve) insufficiency; J44.9 Chronic obstructive pulmonary disease, unspecified; B19.20 Unspecified viral hepatitis C without hepatic coma
CPT/HCPCS: 36415; 70030; 71046; 72157; 72158; 73030; 74177; 75989; 76705; 80048; 80053; 80074; 80202; 81001; 82550; 82565; 82947; 83605; 84145; 85025; 85027; 85610; 85651; 86701; 86702; 87040; 87070; 87075; 87076; 87086; 87205; 87486; 87581; 87633; 87798; 90686; 93005; 93010; 93306; 93971; 94640; 94760; 96361; 96365; 96366; 97110; 97116; 97163; 97166; 97530; 97535; 99285-25; 99406; A9577; J0295; J0694; J1650; J1956; J2060; J2405; J2543; J3010; J3360; J3370; J7030; J7050; Q9967

== ENCOUNTER 2018-10-19 18:08 | Inpatient (IN) | payer OTHER ==
[~2018-10-19] VITALS: Ht 190.5 cm; Wt 94.2 kg
[2018-10-19] MEDS ORDERED: BISA10S PR (18:26)
[2018-10-19] MEDS ORDERED: MELA3 PO (18:28)
[2018-10-19] MEDS ORDERED: NICO21TP TOP (18:29)
[2018-10-19] MEDS ORDERED: NICO2 PO (18:29)
[2018-10-19] MEDS ORDERED: ONDA4ODT MM (18:31)
[2018-10-19] MEDS ORDERED: OXYC5 PO (18:32)
[2018-10-19] MEDS ORDERED: [UNRECOGNIZED DRUG - CODE] IV (18:34)
[2018-10-19] MEDS ORDERED: MIRALAX17 GM PO (18:35)
[2018-10-19] MEDS ORDERED: PROC5 PO (18:36)
[2018-10-19 20:17] LABS: BASOPHILS ABSOLUTE AUTO 0.06 K/mm3 (0.00-0.23); BASOPHILS PERCENT AUTO 1 % (0-2); EOSINOPHILS ABSOLUTE AUTO 0.14 K/mm3 (0.00-0.68); EOSINOPHILS PERCENT AUTO 3 % (0-6); Hematocrit 40.5 % (37.0-53.0); Hemoglobin 13.3 g/dL (13.5-17.5); IMMATURE GRAN ABSOLUTE AUTO 0.01 K/mm3 (0.00-0.10); IMMATURE GRAN PERCENT AUTO 0 % (0-1); LYMPHOCYTES ABSOLUTE AUTO 1.43 K/mm3 (0.84-5.20); LYMPHOCYTES PERCENT AUTO 26 % (21-46); MONOCYTES ABSOLUTE AUTO 0.58 K/mm3 (0.16-1.47); MONOCYTES PERCENT AUTO 11 % (4-13); Mean Corpuscular HGB 31.4 pg (26.0-34.0); Mean Corpuscular HGB Conc 32.8 g/dL (31.5-36.5); Mean Corpuscular Volume 96 fL (80-100); Mean Platelet Volume 9.4 fL (9.1-12.4); NEUTROPHILS ABSOLUTE AUTO 3.23 K/mm3 (1.96-9.15); NEUTROPHILS PERCENT AUTO 59 % (41-73); Platelet Count 203 K/mm3 (150-400); RDW Coefficient Variation 16.6 % (11.7-14.2); RDW Standard Deviation 58.6 fL (35.1-46.3); Red Blood Cell Count 4.24 M/mm3 (4.30-5.90); White Blood Cell Count 5.45 K/mm3 (4.00-11.30)
[2018-10-19 20:48] LABS: Alanine Aminotransfer (ALT/SGP 31 U/L (12-78); Albumin, Blood 2.3 g/dL (3.4-5.0); Albumin/Globulin Ratio 0.5 (0.8-1.8); Alk Phos 396 U/L (50-136); Anion Gap 7 mmol/L (6-16); Aspartate Aminotrans (AST/SGOT 54 U/L (12-37); Bilirubin, Total 0.7 mg/dL (0.1-1.0); Blood Urea Nitrogen 15 mg/dL (8-24); Bun/Creatinine Ratio 21.5 (12.0-20.0); CO2, Blood 27 mmol/L (21-32); Calcium, Blood 8.2 mg/dL (8.5-10.1); Chloride, Blood 102 mmol/L (98-108); Globulin, Blood 5.1 g/dL (2.2-4.0); Glomerular Filtration Rate >60 (60-); Glucose, Blood 126 mg/dL (70-99); Potassium, Blood 4.1 mmol/L (3.5-5.5); Sodium, Blood 136 mmol/L (136-145); Total Protein, Blood 7.4 g/dL (6.4-8.2)
--- NOTE | 2018-10-20 04:06 | NUR ---
SHIFT SUMMARY PT A/O. INDEPENDENT IN ROOM. STEADY ON FEET. WALKED SELF DOWN W/ PC INSTALLATION ENGINEER TO HAVE CHEST XRAY DONE. REPORTED 6/10 LOWER BACK PAIN, WORSE WITH MOVEMENT. MEDICATED W/ 10 MG ROXICODONE. OTHERWISE NO OTHER COMPLAINTS. SLEPT OFF AND ON THROUGHOUT THE NIGHT. ADMISSION ASSESSMENT COMPLETED THIS EVENING. PICC LINE TO VU IN PLACE BEFORE ADMIT. NEW DRESSING PLACED. PT RESTING IN BED AT THIS TIME. VSS. WILL CONTINUE TO MONITOR.
--- NOTE | 2018-10-20 18:31 | NUR ---
SHIFT SUMMARY PT HAS HAD NO ACUTE CHANEGS THIS SHIFT, MEDICATED PER MAR FOR PAIN, PT HAS AMBULATED FREQUENTLY T/O HOSP. PT IS BEDRESTING AT THIS TIME, WILL CONT TO MONITOR UNTIL REPORT GIVEN TO FRANCES YUAN.
--- NOTE | 2018-10-21 03:32 | NUR ---
SHIFT SUMMARY NO ACUTE CHANGES. PT FREQUENTLY AMBULATES IN THE CEDEÑ[place], MAKING LAPS AROUND THE FLOOR. REPORTS PAIN IN LOWER BACK THAT IS WORSE WHEN MOVING FROM A LAYING, TO A SITTING, OR TO A STANDING POSITION. MEDICATED X 1 W/ 10 MG ROXICODONE ORDERED. PICC LINE TO VU. FLUSHES WELL, USED FOR ANTIBIOTIC THERAPY. VSS. OTHERWISE SLEPT OFF AND ON WITH NO COMPLAINTS. WILL CONTINUE TO MONITOR AND REPORT TO DAY RN.
--- NOTE | 2018-10-21 05:59 | NUR ---
0450 TOOK OVER CARE OF PATIENT FROM RYLIE FLOWER RN. PT LYING IN BED, EYES CLOSED, APPEARS TO BE RESTING. BREATHING IS EVEN, UNLABORED. NO APPARENT SIGNS OF DISTRESS. CALL LIGHT IS IN REACH. 0550 PT REQUESTED AND RECIEVED PAIN MEDICATION, WILL EVAL FOR EFFECT. NO OTHER APPARENT SIGNS OF DISTRESS. CALL LIGHT IS IN REACH. NO OTHER CHANGES THIS SHIFT.
--- NOTE | 2018-10-21 17:55 | NUR ---
SHIFT SUMMARY PT HAS HAD NO ACUTE CHANGES THIS SHIFT, MEDICATED 1X FOR PAIN, PT HAS BEEN AMBULATING FREQUENTLY T/O HOSP, EATING DINNER AT THIS TIME, WILL CONT TO MONITOR UNTIL REPORT GIVEN TO FRANCES RN.
--- NOTE | 2018-10-21 21:16 | NUR ---
PATIENT BP ELEVATED AFTER WALKING HALLS INDEPENDENTLY X 2. 169/111 & 174/106. RETAKEN AFTER PATIENT RESTING AND REPORTED HE PREVIOUSLY WENT FOR TWO WALKS. BP NOW 148/95. PATIENT WATCHING TV. OXYCODONE GIVEN PER EMAR FOR BACK PAIN. CALL LIGHT IN REACH. WILL CONTINUE TO MONITOR.
--- NOTE | 2018-10-22 03:53 | NUR ---
SHIFT SUMMARY PATIENT HAD NO ACUTE CHANGES OBSERVED THIS SHIFT. AXOX 4 AND INDEPENDENT IN THE HALLS. REPORTED BACK PAIN X ONE AND RECEIVED OXY 10 MG PO PER EMAR. PICC RUQ INTACT. IV ABXS INFUSED. TAKES MEDS WHOLE WITH WATER. VSS/AFEBRILE. WALKED HALLS X TWO. DENIES SOB AND N/V. WATCHED TV FIRST HALF OF SHIFT. COOPERATIVE WITH CARE. CALL LIGHT IN REACH. BED IN LOWEST POSITION. WILL CONTINUE TO MONITOR UNTIL DAY SHIFT NURSE ASSUMES CARE.
--- NOTE | 2018-10-22 17:53 | NUR ---
NO CHANGES TO CONDITION. PATIENT IS INDEPENDANT IN THE ROOM. REQUESTED PAIN MEDS ONCE. IS COOPERATIVE WITH CARES AND PLEASANT.
--- NOTE | 2018-10-22 21:53 | NUR ---
PATIENT REPORTS BACK PAIN AND OXYCODONE 10 MG GIVEN PER EMAR. PATIENT RESTING IN BED WATCHING TV. CALL LIGHT IN REACH. WILL CONTINUE TO MONITOR.
--- NOTE | 2018-10-23 03:53 | NUR ---
SHIFT SUMMARY PATIENT HAD NO ACUTE CHANGES OBSERVED THIS SHIFT. AXOX 4 AND INDEPENDENT IN THE HALLWAYS. PICC RUQ INTACT. IV ABX INFUSED X TWO. REPORTED BACK PAIN X ONE AND OXY 10 MG PO GIVEN PER EMAR. VSS/AFEBRILE. DENIES SOB AND N/V. WATCHED TV FIRST PART OF SHIFT. COOPERATIVE WITH CARE. CALL LIGHT IN REACH. BED IN LOWEST POSITION. WILL CONTINUE TO MONITOR UNTIL DAY SHIFT NURSE ASSUMES CARE.
--- NOTE | 2018-10-24 03:28 | NUR ---
SHIFT SUMMARY PATIENT HAD NO ACUTE CHANGES OBSERVED DURING THE SHIFT. AXOX 4 AND INDEPENDENT IN THE HALLS. OXYCODONE 10 MG PO GIVEN FOR BACK PAIN PER EMAR. PICC RUQ INTACT. IV ABX INFUSED. VSS/AFEBRILE. DENIES SOB AND N/V. SLEPT ON/OFF THIS SHIFT. COOPERATIVE WITH CARE. CALL LIGHT IN REACH. BED IN LOWEST POSITION. WILL CONTINUE TO MONITOR UNTIL DAY SHIFT NURSE ASSUMES CARE.
--- NOTE | 2018-10-24 15:05 | NUR ---
PATIENT GAVE DESTINATION SIGN REPAIRER PERMISSION TO GIVE CARE ON 10/24/18.
--- NOTE | 2018-10-24 16:19 | NUR ---
PT FALL OUTSIDE PT RETURNED FROM OUTSIDE STATEING THAT HE TRIED TO "HOP A GURB" AND TRIPED AND FELL. PT STATES NO HEADACHE. THERE IS A BUMP WITH A CUT ON HIS R FOREHEAD. VITALS STABLE. BP ELEVATED BUT WITHIN NORMAL RANGE FOR AFTER WALKING. DR. WETZEL AWARE OF SITUATION. CENTRAL OFFICE REPAIRER AWARE OF SITUATION. R HAND ABRASION. WILL CONTINUE TO MONITOR FOR CHANGES NEUROLOGICALLY. PT STATES "NOTHING HURTS EXCEPT MY PRIDE"
--- NOTE | 2018-10-24 17:40 | NUR ---
SHIFT SUMMARY PT NOW HAS BUMP & CUT ON HEAD & ABRASION ON R WRIST FROM FALL OUTSIDE. DR. WETZEL AWARE. CHARGE NURSE AWARE. VITALS STABLE. PT STATES HE HAS A HEADACHE. MEDICATED PER EMAR AND ICE PACK MADE FOR PT. PT HAS NO FURTHER CHANGES NEUROLOGICALLY FROM BASELINE. WILL CONTINUE TO MONITOR. NO OTHER CHANGES IN ASSESSMENT AT THIS TIME. PT EDUCATED IN THAT HE IS NO LONGER ABLE TO GO OUTSIDE. PT DISAPPOINTMENT BY THIS STATEMENT. PINK LIGHT APPLIED TO OVERHEAD AND RED SOCKS ON PT. PT CONTINUES TO HAVE ELEVATED DBP OVER 100. WILL CONTINUE TO MONITOR.
--- NOTE | 2018-10-24 18:09 | NUR ---
PT REFUSED YELLOW GOWN PT REFUSED YELLOW GOWN. RED SOCKS APPLIED TO PT.
--- NOTE | 2018-10-25 03:38 | NUR ---
SHIFT SUMMARY PATIENT HAD NO ACUTE CHANGES OBSERVED DURING THE SHIFT. AXOX 4 AND INDEPENDENT. REPORTED BACK PAIN AND RECEIVED OXY 10 MG PO PER EMAR. PICC RU ARM INTACT. IV ABX INFUSED. VSS/AFEBRILE. DENIES SOB AND N/V. SLEPT MORE THIS SHIFT THAN LAST NOCX SHIFT. CALL LIGHT IN REACH. BED IN LOWEST POSITION. WILL CONTINUE TO MONITOR UNTIL DAY SHIFT NURSE ASSUMES CARE.
--- NOTE | 2018-10-25 17:35 | NUR ---
SHIFT SUMMARY PT HAS HAD NO ACUTE CHANGES THIS SHIFT, MEDICATED PER MAR FOR PAIN, PT APPEARS TO BE SLEEPING AT THIS TIME, WILL CONT TO MONITOR UNTIL REPORT GIVEN TO NOC RN.
--- NOTE | 2018-10-26 07:30 | NUR ---
walking around on own, a+o, saline locked between abx, room air, call light in reach, walking rounds completed with returning day shift
--- NOTE | 2018-10-26 17:36 | NUR ---
SHIFT SUMMARY PT HAS HAD NO ACUTE CHANGES THIS SHIFT, MEDICATED 1X FOR PAIN, NO OTHER COMPLAINTS OF ANY KIND. PT IS BEDRESTING AT THIS TIME, WILL CONT TO MONITOR UNTIL REPORT GIVEN TO FRANCES RN.
--- NOTE | 2018-10-27 07:22 | NUR ---
a+o up walking on own dispite of recent fall in parking lot, call light in reach, saline locked picc line when not receiving abx, room air, walking rounds completed with day staff
[2018-10-27 08:07] LABS: Hematocrit 38.8 % (37.0-53.0); Hemoglobin 12.8 g/dL (13.5-17.5); Mean Corpuscular HGB 31.1 pg (26.0-34.0); Mean Corpuscular Volume 94 fL (80-100); Mean Platelet Volume 9.4 fL (9.1-12.4); Platelet Count 138 K/mm3 (150-400); RDW Coefficient Variation 15.8 % (11.7-14.2); RDW Standard Deviation 54.6 fL (35.1-46.3); Red Blood Cell Count 4.11 M/mm3 (4.30-5.90); White Blood Cell Count 3.74 K/mm3 (4.00-11.30)
[2018-10-27 08:38] LABS: Anion Gap 6 mmol/L (6-16); Blood Urea Nitrogen 9 mg/dL (8-24); Bun/Creatinine Ratio 13.5 (12.0-20.0); CO2, Blood 27 mmol/L (21-32); Calcium, Blood 8.4 mg/dL (8.5-10.1); Chloride, Blood 108 mmol/L (98-108); Creatinine, Blood 0.67 mg/dL (0.60-1.20); Glomerular Filtration Rate >60 (60-); Glucose, Blood 84 mg/dL (70-99); Potassium, Blood 3.8 mmol/L (3.5-5.5); Sodium, Blood 141 mmol/L (136-145)
--- NOTE | 2018-10-27 12:30 | NUR ---
PICC DRESSING PER PT PICC DRESSING WAS CHANGED YESTERDAY, THURSDAY 10/26. DATE OF 10/26 IS NOTED ON DRESSING.
--- NOTE | 2018-10-27 18:39 | NUR ---
PT A/O, INDEPENDENT WITH AMBUATION. HE IS A SMOKER AND GOES OUT TO SMOKE FREQUENTLY T/O THE DAY. PT IS FINISHING UP A COURSE OF IV ABX TODAY, ANTICIPATES DISCHARGE TOMORROW. NO ACUTE CHANGES NOTED THIS SHIFT, WILL CONTINUE TO MONITOR AND REPORT TO ONCOMING RN.
--- NOTE | 2018-10-28 07:51 | NUR ---
[age]+o able to self transfer and walk around hospital, call light in reach, saline locked btwn abx, roomair, takes meds whole, walking rounds completed with day staff
[2018-10-28] MEDS ORDERED: SACC250C PO (11:40)
[2018-10-28] MEDS ORDERED: Amoxicillin500 MG PO (11:42)
--- NOTE | 2018-10-28 12:38 | NUR ---
DISCHARGE DISCHARGE MEDICATIONS AND INSTRUCTIONS EXPLAINED TO PATIENT. PATIENT STATED UNDERSTANDING. PICC LINE REMOVED BY CHARGE NURSE. BELONGINGS WITH PATIENT. PATIENT AMBULATED TO HIS PERSONAL VEHICLE.
== END 2018-10-28 12:33 | disposition home or self-care (01) | DRG 372 ==
LOC: MEDS 18:08 → ENPENDDIS 10-28 10:00 → MEDS 10-28 12:33
PROVIDERS: Internal Medicine; Nurse Practitioner Acute Care; ADMIT Internal Medicine
DX: K68.12 Psoas muscle abscess (principal); C22.0 Liver cell carcinoma; L97.409 Non-pressure chronic ulcer of unspecified heel and midfoot with unspecified severity; J90 Pleural effusion, not elsewhere classified; I82.712 Chronic embolism and thrombosis of superficial veins of left upper extremity; R78.81 Bacteremia; F19.10 Other psychoactive substance abuse, uncomplicated; B19.20 Unspecified viral hepatitis C without hepatic coma; Z59.0 Homelessness; F10.21 Alcohol dependence, in remission
CPT/HCPCS: 36415; 71046; 73620; 80048; 80053; 85025; 85027; 87040; J1650; J2540; J7050